=== PATIENT | female | born 1950 ===

== ENCOUNTER 2019-03-02 07:59 | Outpatient (CLI) | payer OTHER | END 2019-03-02 08:01 | disposition home or self-care (01) | LOC: SONOGRAMA 07:59 | DX: R10.2 Pelvic and perineal pain (principal) ==

== ENCOUNTER 2020-09-11 07:59 | Outpatient (CLI) | payer OTHER | END 2020-09-11 13:26 | disposition home or self-care (01) | LOC: NUCLEAR 07:59 | DX: I24.9 Acute ischemic heart disease, unspecified (principal); I10 Essential (primary) hypertension; R07.9 Chest pain, unspecified | CPT/HCPCS: 78452; 93017; A9500 ==